=== PATIENT | female | born 1960 | race Caucasian/White ===

== ENCOUNTER 2016-03-28 07:04 | Day surgery (SDC) | payer BC ==
[2016-03-28] MEDS ORDERED: BUPIVACAINE 0.5% W/EPI MPF 30 ML VIAL IVP ONE (09:38)
[2016-03-28] MEDS ORDERED: BUPIVACAINE 0.25% MPF 30ML VIAL IVP ONE (09:38)
[2016-03-28] MEDS ORDERED: DEXAMETHASONE PRESERVATIVE FREE 10MG/ML VIAL IV ONE (09:38)
[2016-03-28] MEDS ORDERED: LIDOCAINE 1% W/EPI 1:200,000 MPF 30ML SQ ONE (09:38)
[2016-03-28] MEDS ORDERED: PROPOFOL 10 MG/ML VIAL IV ONE (13:18)
[2016-03-28] MEDS ORDERED: LIDOCAINE 2% MDV (20MG/ML) 20ML VIAL IV ONE (13:18)
[2016-03-28] MEDS ORDERED: FENTANYL PF 100MCG/2ML VIAL IV ONE (13:18)
[2016-03-28] MEDS ORDERED: MIDAZOLAM HCL 2MG/2ML VIAL IV ONE (13:18)
--- NOTE | 2016-03-28 15:50 | Operative Note ---
PAIN SERVICE OPERATIVE REPORT DATE OF PROCEDURE: 03/28/2016. SURGEON: Serafin Fox D.O. PREOPERATIVE DIAGNOSIS: LUMBAR RADICULITIS, ICD10 CODE M54.16 AND M54.17. PROCEDURE: Fluoroscopically guided bilateral lumbar epidural injection at L4-5 with epidurogram. INDICATIONS: This patient presents with pain which is bilateral back, hip, and leg, somewhat more left than right. Diagnostics show a primary 4-5 disc. ANESTHESIA: Local sedation. ANESTHESIA PROVIDER: Abad Steele CRNA. DESCRIPTION OF PROCEDURE: Intravenous line, vital sign monitoring, intravenous sedation. Prepped and draped with sterile technique. Under imaging, the epidural interspace at L4-5 were marked bilaterally. The skin was infiltrated. Two separate 18-gauge Tuohy needles, one left and one right of midline. Contrast epidurogram showed symmetric and extensive flow in the right quadrant and limited flow characteristics in the left quadrant. A total of 5.0 mL of 0.125% Marcaine with dexamethasone was injected, first left and then right. Both needles were removed. The back was cleaned, topical antibiotic and sterile dressing were applied. We will monitor and evaluate. Serafin Fox D.O. Date Time JOB NUMBER: [id number] cc: Camilla Tran
== END 2016-03-28 08:38 | disposition home or self-care (01) ==
LOC: SUR 07:04
PROVIDERS: ATTEND Pain Medicine Interventional Pain Medicine
DX: M54.16 Radiculopathy, lumbar region (principal); M54.17 Radiculopathy, lumbosacral region; E03.9 Hypothyroidism, unspecified
CPT/HCPCS: 62322; 01992; Q9967; J1100; J3010

== ENCOUNTER 2019-02-26 08:32 | Day surgery (SDC) | payer BC ==
[2019-02-26] MEDS ORDERED: LIDOCAINE 2% MDV (20MG/ML) 20ML VIAL IV ONE (08:33)
[2019-02-26] MEDS ORDERED: FENTANYL PF 100MCG/2ML VIAL IV ONE (08:33)
[2019-02-26] MEDS ORDERED: PROPOFOL 10 MG/ML VIAL IV ONE (08:33)
--- NOTE | 2019-02-27 10:40 | Operative Note ---
OPERATION: 1. ESOPHAGOGASTRODUODENOSCOPY with photo. 2. COLONOSCOPY with cold forceps polypectomy x4. PREOPERATIVE DIAGNOSES: 1. Personal history of colon polyps. 2. Dysphagia. POSTOPERATIVE DIAGNOSES: 1. 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 2. Small hiatal hernia. 3. Sigmoid polyps. PREPARATION QUALITY: Excellent. ESTIMATED BLOOD LOSS: Minimum. SPECIMENS: Sigmoid polyps. COMPLICATIONS: None apparent. PROCEDURE: After informed consent was obtained from the patient, she was placed in the left lateral decubitus position in the endoscopy suite, sedated and monitored by the department of anesthesia. A well-lubricated [id number] gastroscope was placed in the posterior oropharynx under direct visualization and passed to the proximal esophagus. The endoscope was advanced through the proximal, mid, and distal esophagus. The distal esophagus demonstrated ulcerative changes with an associated stricture. There was a small hiatal hernia. The gastric body, antrum, pylorus, duodenal bulb and sweep were otherwise unremarkable. J-turn views of the proximal stomach were unrevealing other than a small hernia being noted. The endoscope was straightened, retracted to the distal esophagus. Photographs were taken. The endoscope removed from the patient with no new findings noted. Digital rectal exam was unremarkable. A well-lubricated [id number] colonoscope was inserted into the rectum and advanced to the cecum. Preparation quality was excellent. The cecum, cecal bulb, ileocecal valve, appendiceal orifice, ascending colon, transverse colon, and descending colon were free of inflammatory changes, mass lesions, or polyps. The sigmoid colon revealed 4 diminutive polyps all removed with a cold forceps. The rectum was unremarkable in forward and J-turn views. The endoscope was straightened, the rectal ampulla deflated, and the endoscope was removed. RECOMMENDATIONS: The patient will be started on pantoprazole 40 mg twice per day before breakfast and dinner. I will repeat her upper endoscopy in 8 weeks to assess healing. If her dysphagia persists, a dilation can be performed at that time. She will require repeat colonoscopy in 3-5 years pending tissue histology. As always, thank you for allowing me to participate in the healthcare of your patients. MAVIS
== END 2019-02-26 10:25 | disposition home or self-care (01) ==
LOC: HOP 08:32
PROVIDERS: ATTEND Internal Medicine Gastroenterology
DX: Z09 Encounter for follow-up examination after completed treatment for conditions other than malignant neoplasm (principal); Z86.010 Personal history of colon polyps; K63.5 Polyp of colon; R13.10 Dysphagia, unspecified; K22.10 Ulcer of esophagus without bleeding; K44.9 Diaphragmatic hernia without obstruction or gangrene; K22.2 Esophageal obstruction; E03.9 Hypothyroidism, unspecified
CPT/HCPCS: 45380; 43235; 00813; J3010